=== PATIENT | male | born 1930 | race Caucasian/White ===

== ENCOUNTER 2017-01-23 19:53 | Inpatient (IN) ==
--- NOTE | 2017-01-23 20:08 | Emergency Department Note ---
Disposition Clinical Impression: Pulmonary embolism and infarction Disposition: Admitted As Inpatient Condition: Serious SOB HPI - General Chief Complaint: ED Shortness of Breath/Dyspnea Stated Complaint: BAYRON/"chest congestion" Time Seen by Provider: 01/23/17 20:08 Source: patient, family Mode of arrival: ambulatory Limitations: no limitations Nursing Notes Reviewed: Yes Vital Signs Reviewed: Yes - History of Present Illness 86-year-old male presents to the ER with a chief complaint of shortness of breath and chest pain. Pt Subjective Complaint: shortness of breath, cough, pain with inspiration, chest pain Onset (ago): day(s) Context: recent illness Severity: moderate Consistency/Duration: intermittent Improves with: rest Worsens with: inspiration Associated symptoms: Reports: pain with inspiration, cough, sputum production ( Clear). Denies: fever, orthopnea, lower extremity pain, nausea/vomiting, abdominal pain Treatment prior to arrival: none Cough present: Yes Cough Description: Involuntary Cough Frequency: Intermittent Sputum production: Yes Sputum Amount: Scant Sputum Color: Clear - Related Data Home oxygen amount: none Home Medications Medication Instructions Recorded Confirmed No Known Home Drugs 01/23/17 01/23/17 Allergies Allergy/AdvReac Type Severity Reaction Status Date / Time No Known Allergies Allergy Verified 01/23/17 19:58 All systems ED: reviewed and negative except as stated. Constitutional: Denies: fever, chills Cardiovascular: Reports: chest pain (With inspiration). Denies: palpitations Respiratory: Reports: cough. Denies: dyspnea, wheezes Gastrointestinal: Denies: abdominal pain, nausea, vomiting Musculoskeletal: Denies: back pain, neck pain Integumentary: Denies: rash Past Medical History - Past Medical History Attestation: Yes The following information was validated with the patient. Source: patient Medical history: Reports: kidney stones Surgical history: Reports: non-contributory - Social History Smoking Status: Never smoker Smokeless Tobacco Status: No Alcohol use: Reports: none Drug use: Reports: none Physical Exam - General Limitations: no limitations General appearance: alert, in no apparent distress - Head Head exam: atraumatic, normocephalic, normal inspection - Eye Eye exam: Present: normal appearance, PERRL, EOMI - ENT ENT exam: normal exam, normal oropharynx, mucous membranes moist - Expanded ENT Exam External ear exam: Present: normal external inspection Mouth exam: Present: normal external inspection - Neck Neck exam: Present: normal inspection, full ROM, trachea midline - Chest Chest inspection: Present: normal inspection, symmetric chest wall rise - Respiratory Respiratory exam: Present: other (Diminished lung sounds on the left in comparison to the right. No wheezing.) - Cardiovascular Cardiovascular exam: Present: regular rate, normal rhythm, normal heart sounds - Abdominal Exam Abdominal exam: Present: soft, Non-Tender. Absent: tenderness, distention, guarding, rigidity - Extremities Exam Extremities exam: Present: normal inspection, full ROM. Absent: tenderness, pedal edema - Expanded Upper Extremity Exam Shoulder exam: Present: normal inspection, full ROM Arm exam: Present: normal inspection, full ROM Elbow exam: Present: normal inspection, full ROM Forearm/Wrist exam: Present: normal inspection, full ROM Hand exam: Present: normal inspection, full ROM Vascular exam: Normal: capillary refill, radial pulse - Expanded Lower Extremity Exam Hip/Pelvis exam: Present: normal inspection, full ROM Upper leg exam: Present: normal inspection, full ROM Knee exam: Present: normal inspection, full ROM Lower leg exam: Present: normal inspection, full ROM Ankle exam: Present: normal inspection, full ROM Foot/toe exam: Present: normal inspection, full ROM Neurovascular/Tendon exam: Absent: motor deficit, sensory deficit - Back Exam Back exam: Present: normal inspection - Neurological Exam Neurological exam: Present: alert - Expanded Neurological Exam Coma Scale Eye Opening: Spontaneous Coma Scale Motor Response: Obeys Commands Coma Scale Verbal Response: Oriented Coma Scale Total: 15 - Psychiatric Psychiatric exam: Present: normal affect, normal mood - Skin Skin exam: Present: warm, dry, intact, normal color Course Course Narrative: 86-year-old male history of kidney stones presents to the ER with a chief complaint of cough and chest pain. Patient reports he has had a head cold and cough for the last 4-5 weeks. He reports that he felt like he was getting better and then this evening after he went out to eat he started having left- sided chest pain with inspiration. He denies trauma to the area. He denies a history of cardiac events. He states that at rest he is having no pain but with any deep inspiration he feels a sharp left-sided pain. He denies fevers, shortness of breath, nausea, vomiting, diarrhea. No history of DVT or PE. He does report a cough productive of clear sputum. He is hypertensive here and reports that he is not on any medications. He does not follow-up with the physician frequently. No other complaints. Plan for patient his EKG, 2 view chest x-ray, basic labs including troponin and d-dimer. Disposition pending. - Reevaluation(s) Reevaluation #1: Discussed results of lab work with the patient. His d-dimer is elevated and we will pursue a CTA of the chest for PE rule out. Patient is in agreement with this. He remains profoundly hypertensive here. He has received clonidine 0.1 mg. Will order 10 mg of labetalol. Reevaluation #2: Discussed results of CTA with the patient. Patient will be placed on a heparin drip and admitted to the hospital for further management. Vital Signs Temperature 98.2 F 01/23/17 19:54 Pulse Rate 112 01/23/17 19:54 Respiratory Rate 18 01/23/17 19:54 Blood Pressure 210/127 01/23/17 19:54 O2 Sat by Pulse Oximetry 93 L 01/23/17 19:54 Temperature 97.9 F 01/24/17 00:24 Pulse Rate 107 01/24/17 00:24 Respiratory Rate 16 01/24/17 00:24 Blood Pressure 143/99 01/24/17 00:24 O2 Sat by Pulse Oximetry 93 L 01/24/17 00:24 Oxygen Delivery Oxygen Delivery Room Air Shortness of Breath/Dyspnea - MDM Narrative Medical decision making narrative: 86-year-old male presents to the ER due to 5 weeks of head cold cough with the development of left-sided pleuritic chest pain today. His EKG here is sinus tachycardia with a right bundle branch block. His d-dimer was elevated over 3000. CTA of the chest shows a right lingular and middle lobe pulmonary embolism with concern for early infarction. He has remained profoundly hypertensive during his stay here. Has received clonidine as well as labetalol. Hospital's request to initiate a nicardipine drip. Goal systolic of 150-160. Patient will be admitted to the hospital for further management. - Lab Data Lab results reviewed: Yes I reviewed the patient's lab results. Result diagrams: 01/23/17 20:25 01/23/17 20:25 Lab Results 01/23/17 01/23/17 01/23/17 Range/Units 20:25 20:25 20:25 WBC 9.6 (4.3-11.1) K/mcL RBC 5.10 (4.19-5.50) M/mcL Hgb 15.8 (12.9-16.9) g/dL Hct 47.1 (37.5-50.1) % MCV 92.4 (83.0-100.0) fL MCH 31.0 (28.0-33.3) pg MCHC 33.5 (31.6-35.5) g/dL RDW 13.2 (11.5-14.5) % Plt Count 210 (140-400) K/mcL MPV 10.0 (9.4-12.4) fL Immature Gran % 0.2 (0-4) % Seg Neutrophils % 66.5 % Lymphocytes % 23.0 % Monocytes % 7.2 % Eosinophils % 2.4 % Basophils % 0.7 % Neutrophils # 6.4 (1.6-8.9) K/mcL Lymphocytes # 2.2 (0.6-4.6) K/mcL Monocytes # 0.7 (0.0-1.3) K/mcL Eosinophils # 0.2 (0.0-0.6) K/mcL Basophils # 0.1 (0.0-0.2) K/mcL PT (9.4-12.1) Seconds INR APTT (26.0-36.0) Seconds D-Dimer 3051 H (0-500) ng/mLFEU Sodium 143 (136-145) mEq/L Potassium 4.3 (3.5-4.5) mEq/L Chloride 110 H (98-109) mEq/L Carbon Dioxide 21 (19-29) mEq/L BUN 21 (8-26) mg/dL Creatinine 1.18 (0.72-1.25) mg/dL Est GFR ( Amer) > 60 (> 60) Est GFR (Non-Af Amer) 59 L (> 60) BUN/Creatinine Ratio 18 (6-26) Glucose 138 H (70-99) mg/dL Calculated Osmolality 301 H (280-300) Calcium 9.1 (8.6-10.8) mg/dL Troponin I (0-0.03) ng/mL B-Natriuretic Peptide (0-100) pg/mL 01/23/17 01/23/17 01/23/17 Range/Units 20:25 20:25 20:25 WBC (4.3-11.1) K/mcL RBC (4.19-5.50) M/mcL Hgb (12.9-16.9) g/dL Hct (37.5-50.1) % MCV (83.0-100.0) fL MCH (28.0-33.3) pg MCHC (31.6-35.5) g/dL RDW (11.5-14.5) % Plt Count (140-400) K/mcL MPV (9.4-12.4) fL Immature Gran % (0-4) % Seg Neutrophils % % Lymphocytes % % Monocytes % % Eosinophils % % Basophils % % Neutrophils # (1.6-8.9) K/mcL Lymphocytes # (0.6-4.6) K/mcL Monocytes # (0.0-1.3) K/mcL Eosinophils # (0.0-0.6) K/mcL Basophils # (0.0-0.2) K/mcL PT 11.3 (9.4-12.1) Seconds INR 1.0 APTT 33.0 (26.0-36.0) Seconds D-Dimer (0-500) ng/mLFEU Sodium (136-145) mEq/L Potassium (3.5-4.5) mEq/L Chloride (98-109) mEq/L Carbon Dioxide (19-29) mEq/L BUN (8-26) mg/dL Creatinine (0.72-1.25) mg/dL Est GFR ( Amer) (> 60) Est GFR (Non-Af Amer) (> 60) BUN/Creatinine Ratio (6-26) Glucose (70-99) mg/dL Calculated Osmolality (280-300) Calcium (8.6-10.8) mg/dL Troponin I 0.01 (0-0.03) ng/mL B-Natriuretic Peptide 72 (0-100) pg/mL - Radiology Data Radiology results reviewed: Yes I reviewed the patient's radiology results. Chest X-Ray 01/23/17 20:25 IMPRESSION: Low lung volumes with small bibasilar atelectasis. D/ / Elvin Birch MD / Elvin Birch MD Interpreting Provider: Elvin Birch MD Chest CTA 01/23/17 21:16 IMPRESSION: Acute nonocclusive lingula lobar and RIGHT middle lobe segmental pulmonary emboli. Early suspected lingula and possible RIGHT middle lobe infarcts. Old granulomatous disease. Findings were discussed with Dr. Hardin At 10:28 pm on 01/23/2017. D/ / Vicki Dillon MD / Vicki Dillon MD Interpreting Provider: Vicki Dillon MD - EKG Data EKG attestation: Yes I reviewed and interpreted this EKG. EKG results narrative: EKG demonstrates sinus tachycardia with right bundle branch block and with PVCs with a rate of 108. Left axis deviation OH interval 173 QRS duration [address]-T wave changes in leads aVR, V1, V2, V3 likely secondary to bundle branch block. No ST elevations or depressions. Changes from previous EKG include right bundle branch block. EKG shows normal: Reports: sinus rhythm Rate: Reports: tachycardia Rhythm: Reports: other (RBBB with Sinus Tachy) Ariton/QRS: Reports: left axis deviation When compared to previous EKG there are: changes noted (5 on a branch block) Interpretation: Reports: nonspecific ST-T wave changes, other (Sinus tachycardia with right bundle branch block and PVCs) S.B.A.RRyan - S.B.A.R. Situation: Demographics, MOA Background: Presenting Complaint, Relevant PMH, Meds, & Allergies Assessment: Vital Signs, Course and respsone to treatment, Exam Concerns, Patient/Family Expectation, Pertinant Lab Results, Outstanding Labs Recommendation: Barrier(s) to disposition, Recommendation based on pending studies, treatments, or consults S.B.A.R. Report Given to: Dr. Ileana Mcgarry Repor Time: 23:21 (Requests to begin nicardipine drip)
--- NOTE | 2017-01-23 20:26 | Emergency Department Note ---
START Narrative - START START: I examined this patient and my medical decision-making was reviewed with the MULTI OPERATION FORMING MACHINE SETTER/PA/Advanced Practice Nurse/Resident Physician. I agree with the documented findings, disposition and treatment plan as described except to the extent set forth below. ED attending note: Patient seen with emergency medicine resident Dr. Pineda. Please see a copy of his note for details of the H&P, evaluation, management and disposition of this patient. We independently had [id number] contact with the patient Briefly: A 86-year-old male presents after eating a large meal with epigastric fullness and shortness of breath and chest discomfort. Markedly hypertensive with a systolic of about 220. Logical nonfocal normal prior history of hypertension. We will undergo cardiac workup here. EKG troponin dimer chest x- ray. Other screening labs. Disposition pending. Patient stable.
[2017-01-23 20:35] LABS: Basophils # 0.1 K/mcL (0.0-0.2); Basophils % 0.7 %; Eosinophils # 0.2 K/mcL (0.0-0.6); Eosinophils % 2.4 %; Hematocrit 47.1 % (37.5-50.1); Hemoglobin 15.8 g/dL (12.9-16.9); Immature Granulocytes % 0.2 % (0-4); Lymphocytes # 2.2 K/mcL (0.6-4.6); Mean Corpuscular HGB Conc 33.5 g/dL (31.6-35.5); Mean Corpuscular Volume 92.4 fL (83.0-100.0); Monocytes # 0.7 K/mcL (0.0-1.3); Monocytes % 7.2 %; Neutrophils # 6.4 K/mcL (1.6-8.9); Platelet Count 210 K/mcL (140-400); Red Cell Distribution Width 13.2 % (11.5-14.5); Segmented Neutrophils % 66.5 %
[2017-01-23 20:47] LABS: BUN/Creatinine Ratio 18 (6-26); Blood Urea Nitrogen 21 mg/dL (8-26); Calcium 9.1 mg/dL (8.6-10.8); Carbon Dioxide 21 mEq/L (19-29); Chloride 110 mEq/L (98-109); Glucose 138 mg/dL (70-99); Osmolality,Calculated 301 (280-300); Potassium 4.3 mEq/L (3.5-4.5); Sodium 143 mEq/L (136-145); eGFR For African Americans > 60 (> 60); eGFR For Non-African Americans 59 (> 60)
[2017-01-23] MEDS ORDERED: 0.9 % Sodium Chloride 500 ML IVC ONE (21:16)
[2017-01-23] MEDS ORDERED: cloNIDine HCl 0.1 MG TABLET PO ONE (21:22)
[2017-01-23] MEDS ORDERED: *HR* Labetalol 20 MG/4 ML SYRINGE IVP ONE (22:08)
[2017-01-23] MEDS ORDERED: *HR* Heparin 5,000 UNIT/ML VIAL IVP PRN ×2 (22:37)
[2017-01-23] MEDS ORDERED: *HR* Heparin 5,000 UNIT/ML VIAL IVP ONE (22:37)
[2017-01-23] MEDS ORDERED: Heparin 25,000 UNIT/500 ML D5W 25,000 UNIT/500 ML MLS IVC SCH (22:45)
[2017-01-23] MEDS ORDERED: niCARdipine 40 MG/200 ML MLS IVC SCH (23:00)
[2017-01-23 23:20] LABS: Prothrombin Time 11.3 Seconds (9.4-12.1)
[2017-01-24] MEDS ORDERED: Naloxone 0.4 MG/ML INJ IVP PRN (00:05)
[2017-01-24] MEDS ORDERED: Ondansetron ODT 4 MG TAB.RAPDIS SL PRN (00:05)
[2017-01-24] MEDS ORDERED: Acetaminophen 325 MG TABLET PO PRN (00:05)
--- NOTE | 2017-01-24 00:19 | Internal Med History&Physical ---
<Linda Bell - Last Filed: 01/24/17 01:13> Date of Encounter: 01/24/17 Time of Encounter: 00:17 Assessment and Plan (1) Acute pulmonary embolism Current visit: Yes Status: Acute heparin drip supplemental O2 PRN plan to transition to oral anticoagulation once patient is stable Qualifiers: Pulmonary embolism type: other Acute cor pulmonale presence: without acute cor pulmonale Qualified Code(s): I26.99 - Other pulmonary embolism without acute cor pulmonale (2) Hypertensive urgency Current visit: Yes Status: Acute nicardipine drip target SBP 150s-160s initially so patient does not bottom out plan to transition to oral antihypertensives - most likely will need multiple due to record review showing high BPs (150/100, 182/104, 160/107) Internal Medicine - H&P: HPI Chief complaint: chest pain Admitted From: Emergency Dept Plans for Post Hospital Care: Home History of present illness: Mr. Coreas is a 86 year old male who presents to the ER experiencing chest pain. He has a 4-5 week history of cough productive of clear sputum. This evening after dinner he started having left-sided chest pain that was worsened by inspiration to the point where he felt unable to take a deep breath due to pain. He thought the pain might be indigestion at first, but it was not getting better with the passage of time and his son convinced him to come to the ER. He has no chronic medical conditions and takes no daily medicines, only going to his PCP every 2-3 years. In the ER, he had a positive D-dimer and CTA was positive for PE (Acute nonocclusive lingula lobar and right middle lobe segmental PE. Early suspected lingula and possible right middle lobe infarcts). He also had elevated BP - 210/ 127 on arrival. Heparin and nicardipine drips were started in the ER and the patient was admitted for further management. Past Med Surg Social Fam HX - Past Medical History Medical history: kidney stones Psychiatric history: no psych history - Past Surgical History Surgical History: non-contributory - Social History Smoking Status: Never smoker Smokeless Tobacco Status: No Alcohol use: none Drug use: none Occupational status: retired Current living situation: Home - Independent - Family History Father Cause of : cancer Hx Family Cancer: Yes Mother Age at : 97 Internal Medicine - H&P: Meds No Known Home Drugs 01/23/17 [History] Allergies No Known Allergies Allergy (Verified 01/23/17 19:58) All Systems PM: A 10-system review of systems was performed and is negative for pertinent findings except as documented above in the HPI. - Constitutional Constitutional: no chills, no fever(s), no night sweats - EENT Eyes: no change in vision, no discharge, no pain, no photophobia Ears: no ear discharge, no ear pain, no tinnitus Nose, mouth and throat: no dysphagia, no nasal discharge, no neck pain, no sore throat - Cardiovascular Cardiovascular ROS IM: chest pain, dyspnea (due to inability to take large breath due to pain), no diaphoresis, no lightheadedness, no palpitations, no syncope - Respiratory Respiratory: cough, pain on inspiration, no dyspnea, no wheezing, no excessive phlegm production - Gastrointestinal Gastrointestinal: no abdominal pain, no diarrhea, no hematemesis, no hematochezia, no melena, no nausea, no vomiting - Musculoskeletal Musculoskeletal ROS IM: no arthralgias, no myalgias, no numbness, no tingling - Integumentary Integumentary IM: no rash, no unusual bruising - Neurological Neurological ROS: no confusion, no convulsions, no focal weakness, no numbness, no tingling, no tremor(s) - Hematologic/Lymphatic Hematologic/Lymphatic: no easy bruising - Constitutional Vitals: Temp Pulse Resp BP Pulse Ox 98.2 F 105 20 171/109 93 L 01/23/17 19:54 01/23/17 23:39 01/23/17 23:52 01/23/17 23:52 01/23/17 23:39 General appearance: Present: cooperative, A&O X 3, pleasant, no acute distress, answers questions appropriately - Head Head exam: Present: atraumatic, normocephalic - Eye Eye exam: Present: PERRL, conjuntiva pink, sclera anicteric Pupils: Present: PERRL - Neck Neck exam general surgery: Present: supple, trachea midline. Absent: lymphadenopathy - Respiratory Respiratory exam: Present: CTAB. Absent: accessory muscle use, rales, rhonchi, wheezes - Cardiovascular Cardiovascular exam: Present: RRR, +S1, +S2. Absent: diastolic murmur, gallop, rubs, systolic murmur - GI/Abdominal GI/Abdominal exam: Present: normal bowel sounds, soft, no peritoneal signs. Absent: distended, tenderness - Extremities Exam Extremities exam: Present: warm, radial pulses palpable and symetrical. Absent : calf tenderness, cyanotic, pedal edema - Neurological Exam Neurological exam: Present: CN II-XII intact, oriented X3, no focal deficits. Absent: pronater drift, facial droop, speech deficit - Skin Skin exam: Present: dry, intact Internal Med - H&P Results - Labs CBC & Chem 7: 01/23/17 20:25 01/23/17 20:25 <Ovidio Johnson - Last Filed: 01/24/17 03:38> Date of Encounter: 01/24/17 Internal Medicine - H&P: HPI History of present illness: Mr. Coreas is a 86 year old male All Systems PM: A 10-system review of systems was performed and is negative for pertinent findings except as documented above in the HPI. - Constitutional Vitals: Temp Pulse Resp BP Pulse Ox 97.9 F 107 16 143/99 93 L 01/24/17 00:24 01/24/17 00:24 01/24/17 00:24 01/24/17 00:24 01/24/17 00:24 Internal Med - H&P Results - Labs CBC & Chem 7: 01/23/17 20:25 01/23/17 20:25 - Attending Attestation I performed a history and physical examination of the patient and discussed his management with the Resident/Printing Specialist (Dr Bell). I reviewed the residents note and agree with the documented findings and plan of care, with additions as below. 86 Y/M with h/o white coat syndrome, otherwise healthy - apparently had about 4 week history of cough with clear sputum. He presents to the emergency department with pleuritic chest pain on the left side. In the ER, he had a positive D-dimer and CTA was positive for PE with infarcts. He is started on heparin infusion. No provoking factors for DVT / PE. No family h/o DVT / PE. He was hypertensive, with BP of 210/127. O/E: AAO x 3. Cardiac: regular rate and rhythm. ECKG: sinus rhythm, RBBB. Lungs : CTA A/P: Unprovoked pulmonary embolism: On heparin infusion. The left and echocardiogram to evaluate for RV strain/pulmonary hypertension. Oral anti- coagulants prior to discharge. He will need f/u with med specialist for hypercoagulability workup. I have counseled him about anticoagulation. Hypertensive urgency: Was treated with nicardipine drip. BP is improved now. Switch to amlodipine. He may need additional antihypertensives.
[2017-01-24] MEDS ORDERED: amLODIPine 5 MG TABLET PO SCH ×2 (02:28→02:46)
[2017-01-24 05:52] LABS: INR 1.2; Prothrombin Time 12.7 Seconds (9.4-12.1)
[2017-01-24 06:02] LABS: Alanine Aminotransferase 10 Units/L (0-55); Alkaline Phosphatase 81 Units/L (38-126); Aspartate Amino Transferase 14 Units/L (5-34); BUN/Creatinine Ratio 20 (6-26); Bilirubin,Total 0.7 mg/dL (0.2-1.2); Blood Urea Nitrogen 20 mg/dL (8-26); Calcium 8.7 mg/dL (8.6-10.8); Carbon Dioxide 20 mEq/L (19-29); Chloride 111 mEq/L (98-109); Glucose 112 mg/dL (70-99); Osmolality,Calculated 293 (280-300); Potassium 4.4 mEq/L (3.5-4.5); Sodium 140 mEq/L (136-145); Total Protein 6.6 g/dL (6.0-8.3); eGFR For African Americans > 60 (> 60); eGFR For Non-African Americans > 60 (> 60)
[2017-01-24 06:03] LABS: Albumin/Globulin Ratio 0.8 (1.1-2.2); Globulin 3.6 g/dL (2.4-3.5)
[2017-01-24 06:11] LABS: Activated Partial Thrombo Time 150.9 Seconds (26.0-36.0)
[2017-01-24 06:18] LABS: Heparin anti-factor XA UFH 0.81 IU/mL (0.30-0.70)
[2017-01-24] MEDS: *HR* Enoxaparin 80 MG/0.8 ML SYRINGE SQ SCH (12:27)
--- NOTE | 2017-01-24 14:08 | Internal Med Progress Note ---
<Zachary Swann - Last Filed: 01/24/17 14:05> Date of Encounter: 01/24/17 Time of Encounter: 08:40 - Assessment and plan (1) Pulmonary embolism and infarction Current Visit: Yes Status: Acute Assessment and plan: Unprovoked. Has bilateral PEs This is his first episode of thrombosis. Will transition from heparin gtt to SQ lovenox. discussed options with the patient. HE would like to think further about which mediation he will take. Will likely need usp and possibly indefinate anticoagulation. we will set him up with Hematology as an outpatient as well. TTE pending. (2) Hypertensive urgency Current Visit: Yes Status: Acute Assessment and plan: patient has already been weaned off of nicardipine gtt. continue norvasc and PRN hydralazine. (3) DVT prophylaxis Current Visit: Yes Status: Acute Assessment and plan: currently on therapeutic anticoagulation. - Subjective Interval history: No major events overnight. Patient is currently comfortable and on room air. he denies any recent flights, long car rides, illnesses, hospitalizations, or surgery. He denies aver having had a clot before and dose not have a clotting disorder in the family. He rarely sees his PCP and is not up to date on his routine cancer screening. He admits to some pleuritic pain but states that it is well controlled at this time. - Constitutional Vitals: Temp Pulse Resp BP Pulse Ox 97.9 F 84 16 152/104 93 L 01/24/17 11:18 01/24/17 11:23 01/24/17 11:18 01/24/17 11:18 01/24/17 11:18 General appearance: Present: cooperative, A&O X 3, pleasant, no acute distress, answers questions appropriately - Head Head exam: Present: atraumatic, normocephalic - Eye Eye exam: Present: PERRL, conjuntiva pink, sclera anicteric Pupils: Present: PERRL - Neck Neck exam general surgery: Present: supple, trachea midline. Absent: lymphadenopathy - Respiratory Respiratory exam: Present: CTAB. Absent: accessory muscle use, rales, rhonchi, wheezes - Cardiovascular Cardiovascular exam: Present: RRR, +S1, +S2. Absent: diastolic murmur, gallop, rubs, systolic murmur - GI/Abdominal GI/Abdominal exam: Present: normal bowel sounds, soft, no peritoneal signs. Absent: distended, tenderness - Extremities Exam Extremities exam: Present: warm, radial pulses palpable and symetrical. Absent : calf tenderness, cyanotic, pedal edema - Skin Skin exam: Present: dry, intact Additional comments: multiple sebborheic keratosis Internal Medicine: Result - Labs CBC & Chem 7: 01/23/17 20:25 01/24/17 05:30 Labs: [facility] 01/24/17 05:30 Sodium 140 Potassium 4.4 Chloride 111 H Carbon Dioxide 20 BUN 20 Creatinine 0.99 Glucose 112 H Calcium 8.7 Liver Function 01/24/17 Range/Units 05:30 Total Bilirubin 0.7 (0.2-1.2) mg/dL AST 14 (5-34) Units/L ALT 10 (0-55) Units/L Alkaline Phosphatase 81 (38-126) Units/L Albumin 3.0 L (3.5-5.0) g/dL - ABG Interpretation ABG results: PT/INR, D-dimer PT 12.7 Seconds (9.4-12.1) H 01/24/17 05:30 D-Dimer 3051 ng/mLFEU (0-500) H 01/23/17 20:25 Consult Discharge Plan - Plan Referrals: Elena Carcamo MD [Primary Care Provider] - (SENT WEB REQUEST ON @ [id number]) <Sergio Mims - Last Filed: 01/24/17 15:14> Date of Encounter: 01/24/17 - Constitutional Vitals: Temp Pulse Resp BP Pulse Ox 97.9 F 84 16 152/104 93 L 01/24/17 11:18 01/24/17 11:23 01/24/17 11:18 01/24/17 11:18 01/24/17 11:18 Internal Medicine: Result - Labs CBC & Chem 7: 01/23/17 20:25 01/24/17 05:30 Labs: [facility] 01/24/17 05:30 Sodium 140 Potassium 4.4 Chloride 111 H Carbon Dioxide 20 BUN 20 Creatinine 0.99 Glucose 112 H Calcium 8.7 Liver Function 01/24/17 Range/Units 05:30 Total Bilirubin 0.7 (0.2-1.2) mg/dL AST 14 (5-34) Units/L ALT 10 (0-55) Units/L Alkaline Phosphatase 81 (38-126) Units/L Albumin 3.0 L (3.5-5.0) g/dL - ABG Interpretation ABG results: PT/INR, D-dimer PT 12.7 Seconds (9.4-12.1) H 01/24/17 05:30 D-Dimer 3051 ng/mLFEU (0-500) H 01/23/17 20:25 - Attending Attestation I examined this patient and my medical decision-making was reviewed with the WOOL PRESSER/PA/Advanced Practice Nurse/Resident Physician. I agree with the documented findings, disposition and treatment plan as described except to the extent set forth below. Patient with pulmonary embolism, will transition from heparin drip to subcutaneous Lovenox. Continue with anticoagulation. Obtain echocardiogram. Management of hypertension. Discussed with the patient and his sons in deat[place]. Agree with documentation by Dr. Zachary Swann.
--- NOTE | 2017-01-24 15:23 | Electrocardiograph Report ---
[place] [id number] Test Date: 2017-01-23 Pat Name: Davion Coreas Department: [id number] Room: 2N06 Gender: M Channel Cementer: : [id number] Requested By: Chet Hardin Order Number: [id number] Reading MD: Logan Banks Measurements Intervals [place] Rate: 108 P: 82 MS: 173 QRS: -88 QRSD: 134 T: 17 QT: 348 QTc: 411 Interpretive Statements SINUS TACHYCARDIA WITH FREQUENT SUPRAVENTRICULAR PREMATURE COMPLEXES MARKED LEFT AXIS DEVIATION RIGHT BUNDLE BRANCH BLOCK POSSIBLE ANTERIOR MYOCARDIAL INFARCTION, OF INDETERMINATE AGE Electronically Signed On 01-24-2017 15:22:06 EST by Logan Banks
[2017-01-24 15:47] LABS: Bilirubin,Urine Negative (Negative); Blood,Urine Moderate (Negative); Clarity,Urine Clear (Clear); Color,Urine Yellow (Yellow); Glucose,Urine (UA) Normal (Normal); Ketones,Urine Negative (Negative); Leukocyte Esterase,Urine Negative (Negative); Nitrite,Urine Negative (Negative); Protein,Urine Negative (Neg-Trace); Specific Gravity,Urine 1.025 (1.010-1.025); Urobilinogen,Urine Normal (Normal)
[2017-01-24 15:50] LABS: Bacteria,Urine None Seen per hpf (None-Few); Hyaline Casts,Urine None Seen per lpf (None-Few); Squamous Epithelial Cell,Urine Moderate per lpf (None-Few)
--- NOTE | 2017-01-24 16:08 | Electrocardiograph Report ---
[place] [id number] Test Date: 2017-01-24 Pat Name: Davion Coreas Department: 110 Room: 2N06 Gender: M Scientific Director: : 1930 Requested By: Alexandr Orozco Order Number: [id number] Reading MD: Logan Banks Measurements Intervals [place] Rate: 93 P: 25 NE: 155 QRS: -75 QRSD: 142 T: -8 QT: 373 QTc: 423 Interpretive Statements SINUS RHYTHM WITH OCCASIONAL SUPRAVENTRICULAR PREMATURE COMPLEXES RIGHT BUNDLE BRANCH BLOCK LEFT ANTERIOR FASCICULAR BLOCK Electronically Signed On 01-24-2017 16:06:25 EST by Logan Banks
[2017-01-24 16:32] LABS: Yeast,Urine Few per hpf (None Seen)
[2017-01-25] MEDS: *HR* Enoxaparin 80 MG/0.8 ML SYRINGE SQ SCH ×2 (00:43→12:10)
[2017-01-25 05:45] LABS: Basophils # 0.1 K/mcL (0.0-0.2); Basophils % 0.9 %; Eosinophils # 0.1 K/mcL (0.0-0.6); Eosinophils % 0.9 %; Hematocrit 43.4 % (37.5-50.1); Hemoglobin 14.7 g/dL (12.9-16.9); Immature Granulocytes % 0.4 % (0-4); Lymphocytes # 1.8 K/mcL (0.6-4.6); Lymphocytes % 19.7 %; Mean Corpuscular HGB Conc 33.9 g/dL (31.6-35.5); Mean Corpuscular Hemoglobin 30.9 pg (28.0-33.3); Mean Corpuscular Volume 91.4 fL (83.0-100.0); Mean Platelet Volume 10.5 fL (9.4-12.4); Monocytes # 0.7 K/mcL (0.0-1.3); Monocytes % 7.6 %; Neutrophils # 6.4 K/mcL (1.6-8.9); Platelet Count 221 K/mcL (140-400); Red Blood Count 4.75 M/mcL (4.19-5.50); Red Cell Distribution Width 13.4 % (11.5-14.5); Segmented Neutrophils % 70.5 %
[2017-01-25 05:46] LABS: BUN/Creatinine Ratio 21 (6-26); Blood Urea Nitrogen 19 mg/dL (8-26); Calcium 8.9 mg/dL (8.6-10.8); Carbon Dioxide 20 mEq/L (19-29); Chloride 109 mEq/L (98-109); Glucose 95 mg/dL (70-99); Osmolality,Calculated 288 (280-300); Potassium 3.9 mEq/L (3.5-4.5); Sodium 138 mEq/L (136-145); eGFR For African Americans > 60 (> 60); eGFR For Non-African Americans > 60 (> 60)
[2017-01-25] MEDS ORDERED: amLODIPine 5 MG TABLET PO SCH (09:00)
--- NOTE | 2017-01-25 09:43 | ECHO - Doppler Report ---
Echocardiogram Name: Davion Coreas Date of Study: 01/24/2017 Date: 1930 Ht: 67.0 in Medical Record#: [id number] Age: 86 Wt: 160.0 lb Gender: Male BSA: 1.84 Order #: [id number] Location: [facility] Room #: 2N6 Reading Physician: Radha Perry DO Access Analyst: Gita Cisse Ordering Physician: Zachary Swann DO Primary Physician: Elena Carcamo MD Indications: Pulmonary embolus, r/o right heart strain Impressions: LVEF 60%. Normal left ventricular size and systolic function. There is evidence of mild diastolic dysfunction of the left ventricle. Normal right ventricular size and function. Mild tricuspid regurgitation. Borderline evidence for pulmonary hypertension based on TR gradient. IVC is not well visualized. Left Ventricular Wall Motion: Rest Echo Findings The mid inferior lateral and basal inferior lateral weston were not visualized. All other wall segments showed normal motion. Findings: Study Quality * Technically sub-optimal due to poor echocardiographic windows. ECG Findings * Normal sinus rhythm. Left Atrium * Normal left atrial size. Mitral Valve * Normal mitral valve structure. * No mitral stenosis. * Trace mitral regurgitation. Tricuspid Valve * Tricuspid valve not well visualized. * Mild tricuspid regurgitation. Pulmonic Valve * Pulmonic valve is not well visualized. * No pulmonic stenosis. * No pulmonic regurgitation. Pulmonary Artery * Pulmonary artery not well visualized. Aortic Valve * Trileaflet aortic valve. * Normal aortic valve structure. * No aortic stenosis. * Trace aortic regurgitation. Left Ventricle * LVEF 60%. * Normal LV chamber size, wall thickness and function. * Mild left ventricular diastolic dysfunction. Right Ventricle * Normal right ventricular structure and function. Right Atrium * Normal right atrial size. Interatrial Septum * Interatrial septum not well evaluated. IVC * The IVC is not well evaluated. Pericardium * There is no pericardial effusion present. Aorta * Not fully visualized. History Hypertension Measurements: BP: 152/ 104 2D Normal Values IVSd: .90 cm 0.6 - 1.0 cm LVIDd: 4.80 cm 3.7 - 5.6 cm LVPWd: .90 cm 0.6 - 1.1 cm LVIDs: 3.00 cm 1.5 - 3.6 cm AO: 2.30 cm < 4.0 cm LA: 3.40 cm 2.0 - 4.0cm %FS: 37.50 cm >25 % LA volume: 46 Mitral Valve Peak E:.71 m/sec Peak A:1.14 m/sec E/A Ratio:0.6 Peak E' Lat Alex:11.7 cm/s Peak E' Med Alex:4.68 cm/s E/E' Lat Ratio:6 E/E' Med Ratio:15.1 Tricuspid Valve TV Regurg Peak Grad: 33.00mmHg TV Regurg Peak Alex: 2.86m/sec Updated by Radha Perry on 01/25/2017 9:36:30 AM electronically signed on 01/25/2017 9:37:20 AM with status of Final Wall Motion Garcia: 1=Normal, 2=Hypokinesis, 3=Akinesis, 4=Dyskinesis, 5=Aneurysmal, 6=Hyperkinetic, X=Not Visualized (Blank)=Missing
[2017-01-25 10:52] VITALS: BP 123/83
--- NOTE | 2017-01-25 14:54 | Discharge Summary ---
Date of Encounter: 01/25/17 Time of Encounter: 14:52 - Discharge Diagnosis (1) Pulmonary embolism and infarction Priority: Primary Status: Acute (2) Hypertensive urgency Priority: Secondary Status: Acute (3) DVT prophylaxis Priority: Secondary Status: Acute - Discharge Medications Prescriptions: Amlodipine [Norvasc] 10 mg PO DAILY 30 Days Rivaroxaban [Xarelto] 20 mg PO DAILY #21 tablet Home Medications: Amlodipine [Norvasc] 10 mg PO DAILY 30 Days 01/25/17 [Rx] Rivaroxaban [Xarelto] 20 mg PO DAILY #21 tablet 01/25/17 [Rx] Allergies/Adverse Reactions: Allergies No Known Allergies Allergy (Verified 01/24/17 07:18) Labs on day of discharge: Labs from last 24 hours 01/25/17 01/25/17 01/24/17 05:09 05:09 15:00 WBC 9.1 RBC 4.75 Hgb 14.7 Hct 43.4 MCV 91.4 MCH 30.9 MCHC 33.9 RDW 13.4 Plt Count 221 MPV 10.5 Immature Gran % 0.4 Seg Neutrophils % 70.5 Lymphocytes % 19.7 Monocytes % 7.6 Eosinophils % 0.9 Basophils % 0.9 Neutrophils # 6.4 Lymphocytes # 1.8 Monocytes # 0.7 Eosinophils # 0.1 Basophils # 0.1 Sodium 138 Potassium 3.9 Chloride 109 Carbon Dioxide 20 BUN 19 Creatinine 0.89 Est GFR ( Amer) > 60 Est GFR (Non-Af Amer) > 60 BUN/Creatinine Ratio 21 Glucose 95 Calculated Osmolality 288 Calcium 8.9 Urine Color Yellow Urine Clarity Clear Urine pH 6.0 Ur Specific Malcolm 1.025 Urine Protein Negative Urine Glucose (UA) Normal Urine Ketones Negative Urine Blood Moderate H Urine Nitrite Negative Urine Bilirubin Negative Urine Urobilinogen Normal Ur Leukocyte Esterase Negative Urine Microscopic RBC 3-5 H Urine Microscopic WBC 3-5 H Ur Squamous Epith Cells Moderate H Urine Bacteria None Seen Hyaline Casts None Seen Urine Yeast Few H Ur Culture Indicated? NO Date of admission: 01/23/17 23:29 Primary care physician: Elena [facility] Consults: 01/24/17 00:33 Consult to Assistant Manager [CONS] Routine Reason for SW Consult: discharge planning Discharging clinician: Zachary Swann Anticipated date of discharge: 01/25/17 - Patient Status Condition: Serious - Discharge Instructions Follow Up With: Elena Carcamo MD [Primary Care Provider] - 01/31/17 1:30 pm () - Hospital Course Hospital course: Mr. Coreas is a 86 year old male - Time Spent with Patient Total time spent providing and/or coordinating discharge services: Physical Examination Vital Signs: Vital Signs, Last 4 Hours Pulse 01/25/17 12:13 114
--- NOTE | 2017-01-25 14:57 | Discharge Summary ---
<Shree,Zachary Rangel - Last Filed: 01/25/17 14:55> Date of Encounter: 01/25/17 Time of Encounter: 14:55 - Discharge Diagnosis (1) Pulmonary embolism and infarction Priority: Primary Status: Acute (2) Hypertensive urgency Priority: Secondary Status: Acute (3) DVT prophylaxis Priority: Secondary Status: Acute - Discharge Medications Prescriptions: Amlodipine [Norvasc] 10 mg PO DAILY 30 Days Blood Pressure Test Kit-Medium [Blood Pressure Cuff Monitor] 1 each MC DAILY #1 kit Rivaroxaban [Xarelto] 20 mg PO DAILY #21 tablet Home Medications: Amlodipine [Norvasc] 10 mg PO DAILY 30 Days 01/25/17 [Rx] Blood Pressure Test Kit-Medium [Blood Pressure Cuff Monitor] 1 each MC DAILY #1 kit 01/25/17 [Rx] Rivaroxaban [Xarelto] 20 mg PO DAILY #21 tablet 01/25/17 [Rx] Allergies/Adverse Reactions: Allergies No Known Allergies Allergy (Verified 01/24/17 07:18) Procedures/tests Complete & Pending: Procedures Performed prior 72 hours Category Date Time Status ECG 12 lead ECG [ECG] Routine Y 01/24/17 01:53 Completed EV echocardiogram Routine Y 01/24/17 07:49 Completed Date of admission: 01/23/17 23:29 Primary care physician: Elena Cintron Consults: 01/24/17 00:33 Consult to Stave Block Roller [CONS] Routine Reason for SW Consult: discharge planning Discharging clinician: Zachary Swann Anticipated date of discharge: 01/25/17 - Patient Status Disposition: Home, Self-Care Condition: Good Functional capacity at discharge: independent ambulation Overall status at discharge: patient is progressing back to baseline - Discharge Instructions Instructions: Amlodipine (By mouth), Rivaroxaban (By mouth), Pulmonary Embolism (DC), Chronic Hypertension (DC) Follow Up With: Elena Carcamo MD [Primary Care Provider] - 01/31/17 1:30 pm () Additional Instructions: Please follow up with your PCP. Please follow up with Hematology. we will make you an appointment. Please take medications only as prescribed. Please take your blood pressure daily and keep a record and bring to your next visit with your PCP. If you are having bloody bowel movements, coughing up blood, urinating blood then come to the ER immediately. If you have an head injury on Xarelto please for to the ER for evaluation. - Diet and Activity Activity: increase activity as tolerated Diet: low fat, low cholesterol, low salt diet Hospital course: Mr. Coreas is a 86 year old male who was admitted woth acute pulmonary embolism of the left lingular and right middle lobes of the lung. He did not have any heart strain on echocardiogram. He remained hemodynamically stable and on room air throughout the hospitalization. He did have a marked elevated blood pressure on arrival with pressure as high as 210/127. He was placed on a nicardipine drip and transitioned to Norvasc. His blood presure is now well controlled. I had several discussions with the family and the patient regaurding the risks and benefits of anticoagulation. I would recommend that he have at least skilled nursing anticoagulation given this was unprovoled and then be reevaluated by hematology for possible indefinate anticoagulation. He should also follow with his PCP and have routine cancer screening. Currently his vital signs are within normal limits. He is comfortable on room air. We will discharge him today with a script for Xarelto. I was told by the son and the patient that cost would not be an issue. I offered to have him stay until he could get his first dose however patient is confident he will be able to get his script filled this afternoon. He has voiced back his understanding and agreement to the plan. - Time Spent with Patient Total time spent providing and/or coordinating discharge services: Greater than 30 minutes (I spent approximately 50 minutes discussing discharge plan and discharging this patient.) - Constitutional Vitals: Temp Pulse Resp BP Pulse Ox 97.9 F 114 16 123/83 94 L 01/25/17 10:50 01/25/17 12:13 01/25/17 10:50 01/25/17 10:50 01/25/17 10:50 General appearance: Present: cooperative, A&O X 3, pleasant, no acute distress, answers questions appropriately - Head Head exam: Present: atraumatic, normocephalic - Eye Eye exam: Present: PERRL, conjuntiva pink, sclera anicteric Pupils: Present: PERRL - Neck Neck exam general surgery: Present: supple, trachea midline. Absent: lymphadenopathy - Respiratory Respiratory exam: Present: CTAB. Absent: accessory muscle use, rales, rhonchi, wheezes - Cardiovascular Cardiovascular exam: Present: RRR, +S1, +S2. Absent: diastolic murmur, gallop, rubs, systolic murmur - GI/Abdominal GI/Abdominal exam: Present: normal bowel sounds, soft, no peritoneal signs. Absent: distended, tenderness - Extremities Exam Extremities exam: Present: warm, radial pulses palpable and symetrical. Absent : calf tenderness, cyanotic, pedal edema - Skin Skin exam: Present: dry, intact <MimsSergio R - Last Filed: 01/25/17 17:49> Date of Encounter: 01/25/17 Procedures/tests Complete & Pending: Procedures Performed prior 72 hours Category Date Time Status ECG 12 lead ECG [ECG] Routine Y 01/24/17 01:53 Completed EV echocardiogram Routine Y 01/24/17 07:49 Completed Date of admission: 01/23/17 23:29 Primary care physician: Elena Bernardo-[facility] Consults: 01/24/17 00:33 Consult to Stave Block Roller [CONS] Routine Reason for SW Consult: discharge planning Hospital course: Mr. Coreas is a 86 year old male - Time Spent with Patient Total time spent providing and/or coordinating discharge services: - Constitutional Vitals: Temp Pulse Resp BP Pulse Ox 97.9 F 114 16 123/83 94 L 01/25/17 10:50 01/25/17 12:13 01/25/17 10:50 01/25/17 10:50 01/25/17 10:50 - Attending Attestation I examined this patient and my medical decision-making was reviewed with the LOCKSTITCH BACK MAKER/PA/Advanced Practice Nurse/Resident Physician. I agree with the documented findings, disposition and treatment plan as described except to the extent set forth below. Agree with Dr. Bains's note. Pulmonary embolism, echo noted. D/C on xarelto. Follow up with hematology for continuity of anticoagulation. HTN management. Follow up with pcp. D/W patient
== END 2017-01-25 16:06 | disposition home or self-care (01) | DRG 176 ==
LOC: 2NNU 19:53 → EMEROO 19:53 → SUATTDRO 23:29 → 2NNU 01-24 00:06
PROVIDERS: ADMIT Pediatrics; ATTEND Internal Medicine